=== PATIENT | male | born 1965 | race American Indian/Alaskan Native ===

== ENCOUNTER 2016-09-26 20:52 | Emergency (ER) | payer OTHER ==
[2016-09-26 22:11] LABS: Basophils % (Auto) 0.5 % (0.0-1.8); Eosinophils % (Auto) 1.6 % (0.0-4.3); Hematocrit 40.2 % (35.5-45.6); Hemoglobin 13.7 gm/dl (11.8-15.2); Mean Corpuscular HGB Conc 34 % (32-34); Mean Corpuscular Hemoglobin 28 pg (28-32); Mean Corpuscular Volume 83 fl (84-94); Platelet Count 181 K/mm3 (140-440); Red Blood Count 4.84 M/mm3 (3.65-5.03); Red Cell Distribution Width 13.1 % (13.2-15.2); White Blood Count 6.5 K/mm3 (4.5-11.0)
[2016-09-26 22:24] LABS: Anion Gap 22 mmol/L; BUN/Creatinine Ratio 16.42; Blood Urea Nitrogen 23 mg/dL (9-20); Calcium 9.4 mg/dL (8.4-10.2); Carbon Dioxide 24 mmol/L (22-30); Chloride 97.2 mmol/L (98-107); Glucose 348 mg/dL (75-100); Potassium 3.9 mmol/L (3.6-5.0); Sodium 139 mmol/L (137-145)
[2016-09-27 00:09] LABS: Bacteria,Urine 1+ /HPF (Negative); Bilirubin,Urine NEG (Negative); Blood,Urine NEG (Negative); Ketones,Urine NEG (Negative); Leukocyte Esterase,Urine NEG (Negative); Mucus,Urine FEW /HPF; Nitrite,Urine NEG (Negative); Protein,Urine <15 mg/dL mg/dL (Negative); Urobilinogen,Urine < 2.0 mg/dL (<2.0); WBC,Urine < 1.0 /HPF (0.0-6.0)
[2016-09-27] MEDS: NACL 0.9% 500 ML 500 ML IV ONE (02:45)
[2016-09-27 03:16] VITALS: BP 125/81
--- NOTE | 2016-09-27 04:02 | Emergency Department Report ---
HPI - General Chief Complaint: Hyperglycemia Time Seen by Provider: 09/27/16 01:49 - HPI HPI: The patient is a 51-year-old male with a history of diabetes, presents for evaluation of tiredness and lightheadedness. The patient reports 1 week of tiredness and lightheadedness, moderate to severe, exacerbated with standing in ambulation, improved with lying flat and rest. He also reports associated polyuria and polyphagia. He denies fever, headache, chest pain, dyspnea, abdominal pain, dysuria, cough, vomiting, diarrhea, rash. ED Past Medical Hx - Past Medical History Previous Medical History?: Yes Hx Hypertension: Yes Hx Congestive Heart Failure: Yes Hx Diabetes: Yes - Surgical History Past Surgical History?: No - Social History Smoking Status: Never Smoker Substance Use Type: None ED Review of Systems ROS: Stated complaint: HIGH BLOOD SUGAR Other details as noted in HPI Constitutional: denies: fever; reports lightheadedness and tiredness ENT: denies: throat or neck pain Respiratory: denies: cough, shortness of breath Cardiovascular: denies: chest pain Endocrine: denies unexplained weight loss or gain Gastrointestinal: denies: abdominal pain, nausea Genitourinary: Reports polyuria or polyphasia denies: dysuria Musculoskeletal: denies: leg swelling Skin: denies: rash Neurological: denies: headache Hematological/Lymphatic: denies: easy bleeding or easy bruising Psych: denies sadness or hopelessness Physical Exam - Physical Exam Vital Signs: Vital Signs 09/26/16 09/27/16 09/27/16 21:25 01:07 02:35 Temperature 98.4 F Pulse Rate 90 87 Respiratory 18 18 18 Rate Blood Pressure 119/87 115/76 [Right] O2 Sat by Pulse 98 99 100 Oximetry Physical Exam: General: well-nourished, well-developed, no acute distress Head: Normocephalic, atraumatic Eyes: normal sclera, EOMI, PERRL, no nystagmus ENT: Mucous membranes are pale and dry Neck: No neck stiffness, no cervical adenopathy Respiratory: Breath sounds equal bilaterally, no wheezing, rales, or rhonchi Cardio: S1 and S2 present, no murmurs, rubs, gallops, capillary refill is delayed Abdomen: Normoactive bowel sounds, soft abdomen, no tenderness Musc: No pitting edema Skin: No rash Neuro: Alert oriented 3, no facial drooping, normal speech, no sensation or motor deficits in the arms or legs, reflexes 2+ symmetric on DTR testing, no obvious gross neuro deficits on examination Psych: Normal affect ED Course Vital Signs 09/26/16 09/27/16 09/27/16 21:25 01:07 02:35 Temperature 98.4 F Pulse Rate 90 87 Respiratory 18 18 18 Rate Blood Pressure 119/87 115/76 [Right] O2 Sat by Pulse 98 99 100 Oximetry ED Medical Decision Making - Lab Data Result diagrams: 09/26/16 21:37 09/26/16 21:37 - Medical Decision Making The patient was seen and examined by myself. The patient is placed on a cardiac exercise specialist and continuous pulse ox. On initial evaluation, the patient was found to be in no distress. Evaluation orders were placed. Lab results reveal elevated glucose with normal bicarbonate and anion gap, and labs were grossly not concerning. The patient is given 500cc normal saline fluid bolus for treatment of dehydration and hyperglycemia. The patient is also given 5 units of IV insulin for treatment of hyperglycemia. The patient was reevaluated and reported that their symptoms were markedly improved. The patient is stable for discharge with outpatient follow-up. The patient is given follow-up and return instructions. The patient expressed understanding and agreed with the plan. The patient is discharged in stable condition. Critical care attestation.: If time is entered above; I have spent that time in minutes in the direct care of this critically ill patient, excluding procedure time. ED Disposition Clinical Impression: Acute hyperglycemia, Dehydration, Generalized weakness Disposition: DISCHARGED TO HOME OR SELFCARE Is pt being admited?: No Does the pt Need Aspirin: No Condition: Stable Instructions: Diabetic Hyperglycemia (ED), Dehydration (ED) Referrals: NEAL CARBAJAL MD [Primary Care Provider] - 3-5 Days Time of Disposition: 02:52
[2016-09-30 03:02] LABS: B-Hydroxybutyrate 0.1 mmol/L (-0.28)
== END 2016-09-27 03:36 | disposition home or self-care (01) ==
LOC: ED 20:52
DX: E11.65 Type 2 diabetes mellitus with hyperglycemia (principal); E86.0 Dehydration; R53.1 Weakness; I10 Essential (primary) hypertension; I50.9 Heart failure, unspecified
CPT/HCPCS: 36415; 80048; 81001; 82010; 82805; 82962; 85025; 96374; 99284; J7040; J1815